=== PATIENT | male | born 1995 | race Caucasian/White ===

== ENCOUNTER 2016-09-13 12:11 | Emergency (ER) | payer BC ==
[~2016-09-13] VITALS: Ht 172.7 cm; Wt 116.7 kg
[~2016-09-13 12:11] MED LIST: ONDA1TAB16 PO
[2016-09-13 12:50] VITALS: BP 152/94; PULSE 94; RESP 16; TEMP 99.5; O2SAT 97
--- NOTE | 2016-09-13 14:32 | PD ---
HPI Chief Complaint: Cold / Flu Symptoms Time Seen by Provider: 14:10 Travel History International Travel<30 days: No Contact w/Intl Traveler<30days: No Traveled to known affect area: No History of Present Illness HPI 20-year-old male with a history of asthma presents to the emergency room for evaluation of slightly productive cough, congestion, pleuritic chest pain, and shortness of breath for the past week. Patient reports associated sore throat and intermittent chills. Denies nausea, vomiting. He has been taking over-the- counter cough and cold medication without significant relief in symptoms. Patient has not had asthma exacerbation since being located. He used to smoke cigarettes. PFSH Past Medical History ADHD: Yes Diminished Hearing: No Immunizations Current: Yes Past Surgical History Surgical History: No Previous Surgery Social History Alcohol Use: No Tobacco Use: No (QUIT 2016) Substance Use: No Allergies-Medications (Allergen,Severity, Reaction): Coded Allergies: No Known Allergies (Verified , 09/13/16) Reported Meds & Prescriptions Reported Meds & Active Scripts Active Ventolin Hfa 18 GM Inh (Albuterol Sulfate) 90 Mcg/Act Aer 2 Puff INH Q6H PRN Review of Systems Except as stated in HPI: all other systems reviewed are Neg Physical Exam Narrative GENERAL: Well-nourished, well-developed male in no acute distress. Afebrile. Ambulatory. SKIN: Warm and dry. HEAD: Normocephalic. EYES: No scleral icterus. No injection or drainage. ENT: Mucosa pink and moist. No erythema or exudates. No uvular edema. No uvular , palatal, or tonsillar deviation. Airway patent. Nasal turbinates appear normal without nasal blood, purulent drainage or septal hematoma. EARS: Bilateral pinnae and external canals appear within normal limits. Bilateral tympanic membranes without erythema, dullness or perforation. NECK: Supple, trachea midline. No JVD or lymphadenopathy. CARDIOVASCULAR: Regular rate and rhythm without murmurs, gallops, or rubs. RESPIRATORY: Breath sounds equal bilaterally. No accessory muscle use. Bilateral inspiratory and expiratory wheezes. No appreciable crackles, rales, or rhonchi. Data Data Last Documented VS Vital Signs Date Time Temp Pulse Resp B/P Pulse Ox O2 Delivery O2 Flow Rate FiO2 09/13/16 12:50 99.5 94 16 152/94 97 Orders Chest, Pa & Lat (09/13/16 ) Albuterol-Ipratropium Neb (Duoneb Neb) (09/13/16 14:45) MDM Medical Decision Making Medical Screen Exam Complete: Yes Emergency Medical Condition: Yes Medical Record Reviewed: Yes Differential Diagnosis Asthma exacerbation versus bronchitis versus upper respiratory infection Narrative Course 20-year-old male with history of asthma presents to the emergency room for evaluation of productive cough, congestion, and sore throat for the past week. Patient reports no improvement in symptoms despite [id number] treatment. Reports associated shortness of breath and pleuritic chest pain with inspiration. Physical exam reveals bilateral inspiratory and expiratory wheezes ; otherwise unremarkable. Pulse ox 97% on room air. Patient is in no distress. Chest x-ray is negative. Patient was given 3 duo nebs with marked improvement in symptoms. States he feels much better. This is bronchitis. Discharged with prescription for albuterol and told to follow up with her primary care physician or return to the emergency room for worsening symptoms. He understands and agrees to plan. Diagnosis Primary Impression: Acute bronchitis Qualified Code: J20.9 - Acute bronchitis, unspecified organism Referrals: Primary Care Physician Patient Instructions: Acute Bronchitis (ED), General Instructions Additional Instructions: Rest and drink plenty of fluids. Use inhaler as directed, as needed for shortness of breath. Take ibuprofen with food as directed, as needed for pain. Continue [id number] cough and cold medications. Follow-up with a primary care physician. Return to the emergency room for worsening symptoms. Med/Other Pt SpecificInfo: Prescription(s) given Scripts Albuterol 18 GM Inh (Ventolin Hfa 18 GM Inh)90 Mcg/Act Aer2 Puff INH Q6H PRN ( SHORTNESS OF BREATH) #1 INHALER Ref 0 Prov:Aston Hairston MD 09/13/16 Disposition: 01 DISCHARGE HOME Condition: Stable Luna Maria Sep 13, 2016 14:32
[2016-09-13] MEDS ORDERED: RESP: ALBUTEROL 2.5 MG/IPRATROPIUM 0.5 MG NEB (SCH) NEB ONE (14:45)
[2016-09-13] MEDS ORDERED: VENTAER INH (15:02)
--- NOTE | 2016-09-13 15:22 | RADHPO ---
EXAM DATE/TIME: 09/13/2016 14:45 [facility] COMPARISON: No previous studies available for comparison. INDICATIONS : Cough for 1 week. MEDICAL HISTORY : None. SURGICAL HISTORY : None. ENCOUNTER: Initial ACUITY: 1 week PAIN SCORE: 4/10 LOCATION: Bilateral chest FINDINGS: PA and lateral views of the chest demonstrate the lungs to be symmetrically aerated without evidence of mass, infiltrate or effusion. The cardiomediastinal contours are unremarkable. Osseous structure s are intact. CONCLUSION: No acute disease. Noel Hall MD on September 13, 2016 at 15:21 Board Certified Radiologist. This report was verified electronically.
== END 2016-09-13 15:34 | disposition home or self-care (01) ==
LOC: PHEFT 12:11
DX: J20.9 Acute bronchitis, unspecified (principal)
CPT/HCPCS: 71020; 94664; 99284